=== PATIENT | male | born 1990 | race Caucasian/White ===

== ENCOUNTER 2018-02-24 17:36 | Emergency (ER) | payer OTHER ==
[2018-02-24 17:49] VITALS: BP 134/73
--- NOTE | 2018-02-24 19:05 | ER Document Report ---
ED General - General Chief Complaint: Back Pain Stated Complaint: BACK PAIN Time Seen by Provider: 02/24/18 18:37 TRAVEL OUTSIDE OF THE [place] IN LAST 30 DAYS: No - HPI Notes: 27-year-old male [employer] who presents with back pain. Patient's had at least 2-3 months of increasingly severe bilateral lower back pain. He has been evaluated at length apparently by the base physician and medical staff and is undergoing physical therapy. States he has had some increased pain in his lower back. Times radiates into his legs. Of note and of concern over the last month or so he has had some intermittent severe pain in his calves after extended exercise. This happens during exercise or PT and then last for a day or 2 later. She also recently felt numb during some physical therapy he was having done but this resolved. He denies any new injury. No bowel or bladder dysfunction. No current neurologic symptoms. No other modifying factors, no other associated symptoms, no other provocative or palliative factors. - Related Data Allergies/Adverse Reactions: No Known Allergies Allergy (Unverified 02/24/18 17:37) Past Medical History - Social History Smoking Status: Current Some Day Smoker Family History: Reviewed & Not Pertinent Patient has suicidal ideation: No Patient has homicidal ideation: No - Medical History Notes: Includes chronic back pain Renal/ Medical History: Denies: Hx Peritoneal Dialysis Past Surgical History: Reports: Hx Orthopedic Surgery - Lt knee; Lt ankle Review of Systems - Review of Systems Notes: Review of systems as in the history of present illness, otherwise negative x 10 systems. Physical Exam - Vital signs Vitals: Temp Pulse Resp BP Pulse Ox 98.1 F 62 16 134/73 H 99 02/24/18 17:48 02/24/18 17:48 02/24/18 17:48 02/24/18 17:48 02/24/18 17:48 - Notes Notes: General: Well devloped, no acute distress. HEENT: Normocephalic, atraumatic. Pupils equal round reactive to light. Mucosa moist. No JVD. Chest: No trauma, normal excursion. Respiratory: Good air exchange, normal excursion. Cardiac: Regular rhythm Abdomen: Soft, benign. Nondistended. Back: No asymmetry or gross abnormality. Bilateral paralumbar tenderness. Motor: Grossly normal power and tone. Neurologic: Alert, nonfocal. 2+ DTRs. Vascular: Well perfused. Normal capillary refill. 2+ dorsalis pedis and tibialis posterior. Skin: No petechiae or purpura Course - Re-evaluation Re-evalutation: 02/24/18 19:34 Well-appearing male with the after mentioned symptoms. With regard to his back pain, appears he is not responding as well as he would like to conservative therapy. However, there is no indication for emergent films or MR imaging. Will treat with naproxen and short course of steroids. With regard to his calf symptoms, some of the suggest some type of claudication. However, this would be unusual an otherwise healthy 27-year-old. He has a normal vascular exam grossly on my evaluation. I have asked that he follow-up with his primary care physician. - Vital Signs Vital signs: Temp Pulse Resp BP Pulse Ox 98.1 F 62 16 134/73 H 99 02/24/18 17:48 02/24/18 17:48 02/24/18 17:48 02/24/18 17:48 02/24/18 17:48 Discharge - Discharge Clinical Impression: Back pain Qualifiers: Back pain location: low back pain Chronicity: acute Back pain laterality: bilateral Sciatica presence: without sciatica Qualified Code(s): M54.5 - Low back pain Condition: Good Disposition: HOME, SELF-CARE Instructions: Low Back Pain ([facility]) Prescriptions: Methylprednisolone [Medrol Dosepack (4 mg/Tab) 21 Tab/Dosepak] 4 mg PO ASDIR PRN #21 tab.ds.pk PRN Reason: Naproxen 500 mg PO Q12 PRN #12 tablet PRN Reason:
== END 2018-02-24 19:13 | disposition home or self-care (01) ==
LOC: ER 17:36
DX: M54.5 Low back pain (principal); M79.662 Pain in left lower leg; M79.661 Pain in right lower leg; F17.200 Nicotine dependence, unspecified, uncomplicated
CPT/HCPCS: 99283